=== PATIENT | female | born 1980 | race Caucasian/White ===

== ENCOUNTER 2023-11-23 18:00 | Outpatient (CLI) | payer BC, SELFPAY ==
[2023-11-23 19:09] LABS: Alanine Aminotransferase 54 U/L (12-78); Albumin Level 4.6 g/dl (3.5-5.0); Albumin/Globulin Ratio 1.8 (1.1-1.8); Alkaline Phosphatase 73 U/L (38-126); Aspartate Amino Transferase 57 U/L (14-36); Bilirubin,Total 0.6 mg/dl (0.2-1.3); Blood Urea Nitrogen 17 mg/dl (7-17); Calcium 9.3 mg/dl (8.4-10.2); Carbon Dioxide 23 mmol/L (22.0-30.0); Chloride 109 mmol/L (98-107); Estimated Glomerular Filt Rate 92 ml/min (>60); GFR (African American) 111 ML/MIN (>60); Globulin 2.6 g/dL (1.3-3.2); Glucose 95 mg/dl (74-100); Sodium 139 mmol/L (136-145); Total Protein,Serum 7.2 g/dl (6.3-8.2)
[2023-11-23 19:43] LABS: Thyroid Stimulating Hormone 1.39 uIU/mL (0.465-4.68)
== END 2023-11-23 23:59 | disposition home or self-care (01) ==
LOC: LAB.DROPOF 11-24 08:03
PROVIDERS: PCP Family Medicine; Visit Provider Family Medicine
DX: J32.9 Chronic sinusitis, unspecified (principal); R05.9 Cough, unspecified; Z79.899 Other long term (current) drug therapy
CPT/HCPCS: 80053; 84443

== ENCOUNTER 2025-06-19 11:00 | Outpatient (CLI) | payer BC, SELFPAY ==
--- OUTSIDE RECORDS SUMMARY | 2025-05-13 10:05 | XMS_ITS ---
Author Organization [facility] Address [address] [place] [address] Care Team Providers Care Training Associate Name Role Phone Unknown, PCP Primary Care Provider Jadon Rich Unavailable [phone] Allergies Allergen (clinical drug ingredient) Drug/Non Drug Allergy documented on EMR Reaction Allergy Type Onset Date Status amoxicillin / clavulanate Augmentin gastrointestinal upset Drug Allergy Active sulfamethoxazole / trimethoprim Bactrim Unknown Drug Allergy Active Levaquin Unknown Drug Allergy Active REASON FOR VISIT Not Feeling Well Medications Medication SIG (Take, Route, Frequency, Duration) Notes Start Date End Date Status Flonase Sensimist 27.5 MCG/SPRAY 2 sprays (1 spray in each nostril) Nasally Once a day 02/23/2024 Active Dicyclomine HCl 20 MG TAKE 1 TABLET BY M OUTH EVERY 4 HOURS NEEDED Oral Active Norethindrone 0.35 MG Oral Active Celecoxib 200 MG TAKE 1 CAPSULE BY MO UTH TWICE DAILY NEEDED FOR PAIN Oral Active Cetirizine HCl 10 MG TAKE ONE (1) TABLET BY MOUTH EVERY DAY Oral Active Cefdinir 300 MG 2 capsule Orally rachel ly; Duration: 7 days 05/13/2025 Active Cholestyramine 4 GM DISSOLVE AND TAKE ON E (1) PACKET BY MOUTH EVERY DAY Oral Active Montelukast Sodium 10 MG 1 tablet Orally Once a day Active Ondansetron HCl 4 MG Oral Active Social History Sex Assigned At : Social History Observation Description Sex Assigned At Female Problems No Known Problems Vital Signs Temperature 98.3 degrees Fahrenheit 05/13/20 25 Respiratory Rate 16 /min 05/13/2025 Blood pressure systolic 98 mm Hg 05/13/20 25 Blood pressure diastolic 70 mm Hg 025 Height 66 in 05/13/2025 Weight 170 lbs 05/13/2025 BMI 27.44 kg/m2 05/13/2025 Encounters Encounter Location Date Provider Diagnosis [id number] [id number] 05/13/2025 Jadon Almeida Acute sinusitis, unspecified J01.90 ; Sinus pressure J34.89 ; Acute cough R05.1 and Sore throat J02.9 Assessments Encounter Date Diagnosis (ICD Code) Assessment Notes Treatment Notes Treatment Clinical Notes Section Notes 05/13/2025 Acute sinusitis, unspecified (ICD-10 - J01.90) Complete the entire course of antibiotics as prescribed, even when symptoms have improved, to prevent a relapse of infection and the development of antibiotic resistance. Discussed testing for flu/covid and strep, it was deferred. I would recommend optimizing your OTC medication management, using pseudoephedrine for congestion and tylenol/advil for pain/inflammation. Continue using flonase and saline nasal spray. If symptoms do not improve in 2-3 days, follow up with the clinic. 05/13/2025 Sinus pressure (ICD-10 - J34.89) 05/13/2025 Acute cough (ICD-10 - R05.1) 05/13/2025 Sore throat (ICD-10 - J02.9) Plan Of Treatment Medication Medication Name Sig Start Date Stop Date Notes Flonase Sensimist 27.5 MCG/SPRAY 2 spray s (1 spray in each nostril) Nasally Once a day 02/23/2024 Dicyclomine HCl 20 MG TAKE 1 TABLET BY M OUTH EVERY 4 HOURS NEEDED Oral Norethindrone 0.35 MG Oral Celecoxib 200 MG TAKE 1 CAPSULE BY MO UTH TWICE DAILY NEEDED FOR PAIN Oral Cetirizine HCl 10 MG TAKE ONE (1) TABLET BY MOUTH EVERY DAY Oral Cefdinir 300 MG 2 capsule Orally rachel ly; Duration: 7 days 05/13/2025 Cholestyramine 4 GM DISSOLVE AND TAKE ON E (1) PACKET BY MOUTH EVERY DAY Oral Montelukast Sodium 10 MG 1 tablet Orally Once a day Ondansetron HCl 4 MG Oral Treatment Notes Assessment Notes Acute sinusitis, unspecified Complete th e entire course of antibiotics as prescribed, even when symptoms have improved, to prevent a relapse of infection and the development of antibiotic resistance. Discussed testing for flu/covid and strep, it was deferred. I would recommend optimizing your OTC medication management, using pseudoephedrine for congestion and tylenol/advil for pain/inflammation. Continue using flonase and saline nasal spray. If symptoms do not improve in 2-3 days, follow up with the clinic. Next Appt Details Follow Up: 2 - 3 Days,Olivier schafer: Progress Notes * Lotus YAOOB: 1 (45 yo F)Acc No.[id number]:05/13/2025 Progress Notes Patient: Keyana MATA Provider: Phill Almeida APRN :1980 A ge:45 Y S ex:Female Date:05/13/2025 External Visit ID:[id number] Address:[address] [place] [address] [id number] Pcp:PCP Unknown Subjective: * Chief Complaints: * 1 . Not Feeling Well. * HPI: N ose.: 45 year old female presents with c/o congestion . 04/15 started with nasal congestion. Feels like the congestion i s in her chest, it can cause discomfort that radiates to the back. Having sore throat, ear pain/fullness, sinus pressure. No runny nose, headache, fever/chills, body aches. Using flonase and saline nasal spray. Taking tylenol severe sinus/cold, advil cold/sinus, has not helped much. sinusitis management olivier smith for prescribing Antibiotic regimen m edical reason, a moxicillin not prescribed: m edical reason, w as sinusitis caused due to bacterial infection? y es, O nset of Symptoms: 0 04/15/2025. * ROS: C ONSTITUTIONAL: no c hills. n o b bart aches. n o f ever.? E YES: no e ye pain. E ARS: ear pain y es. s ensation of fullness y es. ? N OSE: diffuse facial pain y es. r hinorrhea y es. c ongestion y es. M OUTH AND THROAT: no d ifficulty swallowing. s ore throat y es. ? R ESPIRATORY: no S hortness of breath. c ough y es. ? C ARDIOVASCULAR: no c hest pain. N EUROLOGY: no h eadache. * Medical History: I BS, SOD. * Surgical History: c holecystectomy 2013. * Hospitalization/Major Diagno stic Procedure: s ee above , 2x Childbirth . * Family History: F ather: alive. M other: , diagnosed with Cancer. 2 brother(s) , 1 sister(s) - healthy. 1 son(s) , 1 daughter(s) - healthy. . denies hereditary health issues. * Social History: G eneral*: . B iometric Tobacco Use N o tobacco Use. . : Are you a: never smoker. Alcohol Misuse/Abuse (Audit C): Points:: 0, Interpretation:: Negative. Alcohol (routine assessment/review): joseph, Sukhi Carol A 12/17/2023 05:30:12 PM EDT >. Occupation: [employer], [place], [id number] 02/23/2024 11:44:43 AM EDT >. Travel outside [place]: Sukhi ruiz Carol A 12/17/2023 05:30:07 PM EDT >, [place], [id number] 02/23/2024 11:44:46 AM EDT >no, Abe Starkenya N 05/13/2025 03:08:12 PM EDT >. * Medications: T aking Montelukast Sodium 10 MG Tablet 1 tablet Orally Once a day , Taking Cholestyramine 4 GM Packet DISSOLVE AND TAKE ONE (1) PACKET BY MOUTH EVERY DAY Oral , Taking Ondansetron HCl 4 MG Tablet Oral , Taking Cetirizine HCl 10 MG Tablet TAKE ONE (1) TABLET BY MOUTH EVERY DAY Oral , Taking Dicyclomine HCl 20 MG Tablet TAKE 1 TABLET BY MOUTH EVERY 4 HOURS NEEDED Oral , Taking Flonase Sensimist 27.5 MCG/SPRAY Suspension 2 sprays (1 spray in each nostril) Nasally Once a day , Taking Celecoxib 200 MG Capsule TAKE 1 CAPSULE BY MOUTH TWICE DAILY NEEDED FOR PAIN Oral , Taking Norethindrone 0.35 MG Tablet Oral , Medication List reviewed and reconciled with the patient * Allergies: B actrim: InTolerance, Levaquin, Augmentin: gastrointestinal upset. Objective: * Vitals: T emp:98.3, Pulse:81, RR:16, BP:98/70, Pain (at time of visit):7/10, LNMP: MIRENA, Ht: 66, Wt: 170, BMI:27.44. * Examination: F ocused Exam: GENERAL: a lert and oriented x 4, no acute distress, dress appropriate for the environment & temp, well-groomed, appears well. HEAD: s ymmetrical facial features, normocephalic. EYES: c onjunctiva pink w/o inflammation or pallor, sclera white, PERRLA, nystagmus absent, pupil size normal, no discharge. EARS: b ilateral, external canal w/o redness, swelling, discharge, TM intact, pearly bhatt, landmarks visualized, non-tender. NOSE e xternal nose free of swelling, trauma, and deviation, no discharge, frontal/maxillary tenderness. MOUTH AND THROAT: l ips pink, moist, oral mucosa pink, moist, w/o lesions or discolorations, uvula midline, pharynx pink, moist, w/o infection, no tonsillar enlargement, no exudate. RESPIRATORY: b reath sounds clear throughout, respiration even and unlabored, congested cough. CARDIO: S 1 & S2 single sounds, no murmurs, gallops, rubs, or clicks, RRR. NEURO: g ait steady, judgment intact, alert and responsive, oriented to person, place, and time, alert and oriented. Assessment: * Assessment: 1. A cute sinusitis, unspecified - J01.90 (Primary) 2 . S inus pressure - J34.89 3 . A cute cough - R05.1 4 . S ore throat - J02.9 Plan: * Treatment: 2. O thers Continue Montelukast Sodium Tablet, 10 MG, 1 tablet, Orally, Once a day; C ontinue Cholestyramine Packet, 4 GM, DISSOLVE AND TAKE ONE (1) PACKET BY MOUTH EVERY DAY, Oral; C ontinue Ondansetron HCl Tablet, 4 MG, Oral; C ontinue Cetirizine HCl Tablet, 10 MG, TAKE ONE (1) TABLET BY MOUTH EVERY DAY, Oral; C ontinue Dicyclomine HCl Tablet, 20 MG, TAKE 1 TABLET BY MOUTH EVERY 4 HOURS NEEDED, Oral; C ontinue Flonase Sensimist Suspension, 27.5 MCG/SPRAY, 2 sprays (1 spray in each nostril), Nasally, Once a day; C ontinue Celecoxib Capsule, 200 MG, TAKE 1 CAPSULE BY MOUTH TWICE DAILY NEEDED FOR PAIN, Oral; C ontinue Norethindrone Tablet, 0.35 MG, Oral. * Procedure Codes: C ODER Sending to Technology Strategist for Code Review * Follow Up: 2 - 3 Days,prn * Billing Information: * Visit Code: * Procedure Codes: VASCULAR PHYSICIAN Sending to Technology Strategist for Code Review. Care Plan Details* * Sign off status: Completed true * Provider: Phill Almeida APRN Date: Generated for Kelechi sam/Gem/Tienitting on: 08/20/2024 07:24 AM EMT INTERMEDIATE History and Physical Notes * HPI (History of Present Illness) Category Sub-Category Detail Notes Category Not es Nose. congestion . 04/15 started w ith nasal congestion. Feels like the congestion is in her chest, it can cause discomfort that radiates to the back. Having sore throat, ear pain/fullness, sinus pressure. No runny nose, headache, fever/chills, body aches. Using flonase and saline nasal spray. Taking tylenol severe sinus/cold, advil cold/sinus, has not helped much sinusitis management reason for prescribing Anti biotic regimen: medical reason amoxicillin not prescribed:: medical paul son was sinusitis caused due to bacterial in fection? : yes Onset of Symptoms:: 04/15/2025 Examination Category Sub-Category Detail Notes Category Not es Focused Exam HEAD: symmetrical facial features, normocephalic EYES: conjunctiva pink w/o inflammation or pallor, sclera white, PERRLA, nystagmus absent, pupil size normal, no discharge EARS: bilateral, external canal w/o redness, swelling, discharge, TM intact, pearly bhatt, landmarks visualized, non-tender NOSE external nose free o f swelling, trauma, and deviation, no discharge, frontal/maxillary tenderness MOUTH AND THROAT: lips pink, moist, or al mucosa pink, moist, w/o lesions or discolorations, uvula midline, pharynx pink, moist, w/o infection, no tonsillar enlargement, no exudate RESPIRATORY: breath sounds clear throughout, respiration even and unlabored, congested cough NEURO: gait steady, judgmen t intact, alert and responsive, oriented to person, place, and time, alert and oriented GENERAL: alert and oriented x 4, no acute distress, dress appropriate for the environment & temp, well-groomed, appears well CARDIO: S1 & S2 single sound s, no murmurs, gallops, rubs, or clicks, RRR
--- OUTSIDE RECORDS SUMMARY | 2025-06-07 10:15 | XMS_ITS | Encounter Summary ---
Author Organization [place] [address] Care Team Providers Care Pharmacy Service Associate Name Role Phone Wojciech Harmon MD Primary Care Provider [phone] Reason for Visit * Reason Comments Chest Pain Encounter Details Date Type Department Care Team (Late st Contact Info) Description 06/07/2025 10:15 AM EST Office Visit [facility] [address] [place] [phone] [place] [address] [place] [id number] Chest pain, unspecified type (Primary Dx); Dizziness; Shortness of breath Social History Tobacco Use Types Packs/Day Years Used Date Smoking Tobacco: Never Smokeless Tobacco: Never Alcohol Use Standard Drinks/Week Comments No 0 (1 standard drink = 0.6 oz pur e alcohol) Sexually Active Control Partners Comments Not Currently Implant Comments No Sex and Gender Information Value Date Recorded Sex Assigned at Not on file Legal Sex Female 12:31 AM EDT Gender Identity Not on file Sexual Orientation Not on file documented as of this encounter Last Filed Vital Signs Vital Sign Reading Time Taken Comments Blood Pressure 118/72 06/07/2025 10:19 AM EST Pulse 79 06/07/2025 10:19 AM EST Temperature 36.7 C (98 F) 06/07/2025 10:19 AM EST Respiratory Rate 22 06/07/2025 10:19 AM EST Oxygen Saturation 98% 06/07/2025 10:19 AM EST Inhaled Oxygen Concentration - - Weight 74.8 kg (165 lb) 06/07/2025 10:19 AM EST Height 170.7 cm (5' 7.2 ) 06/07/2025 10:19 AM ES T Body Mass Index 25.69 06/07/2025 10:19 AM EST documented in this encounter Patient Instructions * Attachments The following attachments cannot be sent through Care Everywhere. * Chest pain ??? Discharge instructions (Cook Islander) documented in this encounter Progress Notes * Beverly Nix LPN - 06/07/2025 10:15 AM EST Patient was given Apirin 324 mg oral per order, see MAR. Patient tolerated well with no complaints or complications, will continue to monitor. No adverse reactions observed after monitoring, with no patient complaints or complications. EKG performed with no complications or complaints. Results put on Providers desk. Beverly Nix LPN, 06/07/2025 * Brayan Jimenez MD - 06/07/2025 10:15 AM EST Subjective: Patient ID: Keyana Jarrell is a 45 y.o. female. Chief Complaint Patient presents with Chest Pain HPI: Here with her Patient complaining of sudden onset chest pressure and shortness of breath which started about 6 AMthis morning Patient says the discomfort is persistent He does not radiate to her arms or neck No obvious correlation with activity or improvement with rest Denies history of smoking, asthma, lung disease, cardiac disease She also notes some nasal congestion and right ear pain which started this morning as well She further complains of episodes of dizziness/room spinning which come and go; they seem to happenmostly at night They are not provoked by head movements She does have a history of this, however, and notes that the episodes terminate with taking meclizine, which she has at home No reported falls or head trauma She also reports abdominal pain, nausea, and vomiting, although she says these are not new symptoms; 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 There were no changesexcept as noted. Review of Systems Objective: Vitals: 06/07/25 1019 BP: 118/72 BP Location: Right arm Patient Position: Sitting Pulse: 79 Resp: (!) 22 Temp: 98 ??F (36.7 ??C) TempSrc: Oral SpO2: 98% Weight: 165 lb (74.8 kg) Height: 5' 7.2 (1.707 m) Body mass index is 25.69 kg/m??. Physical Exam Constitutional: General: She is not in acute distress. Appearance: Normal appearance. She is not ill-appearing or toxic-appearing. HENT: Head: Normocephalic and atraumatic. Right Ear: Tympanic membrane, ear canal and external ear normal. Left Ear: Tympanic membrane, ear canal and external ear normal. Nose: Nose normal. Mouth/Throat: Mouth: Mucous membranes are moist. Pharynx: Oropharynx is clear. No oropharyngeal exudate or posterior oropharyngeal erythema. Eyes: General: Right eye: No discharge. Left eye: No discharge. Cardiovascular: Rate and Rhythm: Normal rate and regular rhythm. Heart sounds: No murmur heard. Pulmonary: Effort: Pulmonary effort is normal. No respiratory distress. Breath sounds: No wheezing or rales. Abdominal: General: Abdomen is flat. There is no distension. Palpations: Abdomen is soft. Tenderness: There is no abdominal tenderness. Musculoskeletal: General: No signs of injury. Right lower leg: No edema. Left lower leg: No edema. Skin: General: Skin is warm and dry. Neurological: General: No focal deficit present. Mental Status: She is alert. Psychiatric: Mood and Affect: Mood normal. Results for orders placed or performed in visit on 06/07/25 POCT EKG Impression Sinus rhythm RSR pattern; incomplete right bundle branch block No EKG available for comparison Assessment & Plan Chest pain, unspecified type Dizziness Shortness of breath Diagnosis discussed Patient's exam is reassuring and her EKG does not show any obvious acute changes Nonetheless, the patient is complaining of acute onset chest pain and shortness of breath along with episodes of dizziness She received 324 mg of chewable aspirin. Discussed that I cannot exclude serious etiologies for the patient's symptoms, including cardiac diseases which may be fatal if left untreated I therefore recommended that the patient proceed to the ER for further evaluation Patient is mentating appropriately and understands that some potential causes of their symptoms maybe very serious and delayed diagnosis or failure to treat these etiologies may result in permanent disability and/or Patient declined EMS transfer; she says her will drive her Of note, patient looked downcast when told that she should go to the ER and said so I just have tosuffer through the pain? I explained to her that we are trying to get to the root cause of her pain so that we can treat it effectively, and that we need to exclude potentially serious causes for her symptoms to make sure she gets the right treatment. She voiced understanding. All questions answered. She left our department stable condition. Orders: POCT EKG aspirin chewable tablet 324 mg Return precautions provided. This note was composed with the help of [employer] voice recognition software. Attempts were made to proofread at the time of dictation; however, dry end tester errors may still occur. No follow-ups on file. documented in this encounter Miscellaneous Notes * Patient Instructions - Brayan Jimenez MD - 06/07/2025 10:15 AM EST Please go directly to the ER for further evaluation of your chest pain and shortness of breath. Call 911 immediately if you develop worsening chest pain, loss of consciousness/ fainting, or otherconcerning symptoms. documented in this encounter Plan of Treatment Upcoming Encounters Date Type Department Care Team (Late st Contact Info) Description 06/28/2025 8:30 AM EST Office Visit [facility] [address] [place] [address] Neli Ortega MD [address] [place] [phone] Pending Results Name Type Priority Associated Diagnoses Date /Time POCT EKG Point of Care Testing Routine Chest pain, unspecified type 06/07/2025 10:47 AM EST documented as of this encounter Procedures Procedure Name Priority Date/Time Associated Diagnosis Comments POCT EKG Routine 06/07/2025 10:47 AM EST Chest pain, unspecified type documented in this encounter Visit Diagnoses Diagnosis Chest pain, unspecified type- Primary Dizziness Dizziness and giddiness Shortness of breath documented in this encounter Administered Medications Inactive Administered Medications - up to 1 most recent administrations Medication Order MAR Action Action Date Dose Rate Site aspirin chewable tablet 324 mg 324 mg, Oral, ONCE, 1 dose, On Thu06/07/25 at 1045, Dx: 1. Chest pain, unspecified typeIndications:Chest pain, unspecified type Given 06/07/2025 10:40 AM EST 324 mg documented in this encounter Orders Medications Ordered That Mika ht Not Have Been Administered Count Last Ordered Date First Ordered Date aspirin chewable tablet 324 mg 1 06/07/2025 documented in this encounter Care Teams Pharmacy Service Associate Relationship Specialty Start Date End Date Wojciech Harmon MD PCP - General Family Medicine 04/14/14 documented as of this encounter
[2025-06-19 16:30] LABS: Hematocrit 38.6 % (37.0-47.0); Hemoglobin 12.5 g/dL (12.2-16.2); Immature Granulocytes % 0.4 %; Mean Corpuscular HGB Conc 32.4 g/dL (31.8-35.4); Mean Corpuscular Hemoglobin 30.0 pg (27.0-31.2); Mean Corpuscular Volume 92.6 fl (81-99); Nucleated Red Blood Cells % 0 %; Platelet Count 236 K/mm3 (142-424); Red Blood Count 4.17 M/mm3 (4.20-5.40); Red Cell Distribution Width-SD 45.8 fL; White Blood Count 5.5 K/mm3 (4.8-10.8)
[2025-06-19 17:00] LABS: Albumin Level 4.7 g/dl (3.5-5.0); Chloride 105 mmol/L (98-107); Potassium 4.4 mmoL/L (3.5-5.1); Sodium 141 mmol/L (136-145)
[2025-06-19 17:03] LABS: Alanine Aminotransferase 53 U/L (12-78); Albumin/Globulin Ratio 1.6 (1.1-1.8); Alkaline Phosphatase 80 U/L (38-126); Anion Gap 15.4 mEq/L (5-15); Aspartate Amino Transferase 36 U/L (14-36); Bilirubin,Total 0.5 mg/dl (0.2-1.3); Blood Urea Nitrogen 7 mg/dl (7-17); Calcium 9.5 mg/dl (8.4-10.2); Carbon Dioxide 25 mmol/L (22.0-30.0); Cholesterol 193 mg/dl (140-200); Creatinine,Serum 0.70 mg/dl (0.52-1.04); Estimated Glomerular Filt Rate 91 ml/min (>60); GFR (African American) 110 ML/MIN (>60); Globulin 2.9 g/dL (1.3-3.2); Glucose 86 mg/dl (74-100); HDL Cholesterol 56 mg/dl (40-60); Total Protein,Serum 7.6 g/dl (6.3-8.2); Triglycerides 120 mg/dl (30-150)
[2025-06-19 17:30] LABS: T4 (Thyroxine) 9.7 ug/dl (5.53-11.0)
[2025-06-19 17:42] LABS: Hepatitis C Ab Qual. W/ RFX NEGATIVE (Negative)
[2025-06-19 17:43] LABS: Thyroid Stimulating Hormone 2.44 uIU/mL (0.465-4.68)
[2025-06-20 06:16] LABS: Hepatitis B Surface Antigen Negative (Negative)
--- OUTSIDE RECORDS SUMMARY | 2025-06-20 08:24 | XMS_ITS | Encounter Summary ---
Author Organization [place] [address] Care Team Providers Care Forming Roll Operator Name Role Phone Wojciech Harmon MD Primary Care Provider [phone] Encounter Details Date Type Department Care Team (Late st Contact Info) Description 02/18/2018 Orders Only [facility] [address] [facility] [address] [place], [place] [id number] Nathaniel Escobedo MD [address] [place] [address] Social History Tobacco Use Types Packs/Day Years Used Date Smoking Tobacco: Never Smokeless Tobacco: Never Alcohol Use Standard Drinks/Week Comments No 0 (1 standard drink = 0.6 oz pur e alcohol) Comments No Sex and Gender Information Value Date Recorded Sex Assigned at Not on file Legal Sex Female 12:31 AM EDT Gender Identity Not on file Sexual Orientation Not on file documented as of this encounter Plan of Treatment Upcoming Encounters Date Type Department Care Team (Late st Contact Info) Description 06/28/2025 8:30 AM EST Office Visit [facility] [address] [place] [address] Neli Ortega MD [address] [place] [address] documented as of this encounter Procedures Procedure Name Priority Date/Time Associated Diagnosis Comments GMED COLONOSCOPY Routine 02/18/2018 10:0 0 AM EDT documented in this encounter Results * GMED COLONOSCOPY (02/18/2018 10:00 AM EDT) 02/18/2018 10:0 0 AM EDT Impressions [facility] - 02/22/2018 1:53 PM EDT Internal hemorrhoids. Plan: Colonoscopy in 5 years This section is an excerpt of the full report. us Nathaniel Escobedo MD GI PROCEDURE ORDERABLES Oli mary Result - Final [facility] [address] [id number] documented in this encounter Visit Diagnoses Not on filedocumented in this encounter Additional Health Concerns Infection Onset Date Last Indicated Resolved Time INFLUENZA 07/09/2022 07/09/2022 07/24/2022 10:1 2 PM EST documented as of this encounter Care Teams Forming Roll Operator Relationship Specialty Start Date End Date Wojciech Harmon MD PCP - General Family Medicine 04/14/14 documented as of this encounter
--- OUTSIDE RECORDS SUMMARY | 2025-06-20 08:24 | XMS_ITS | Encounter Summary ---
Author Organization [facility] [place] [address] Care Team Providers Care Peripheral Vascular Tech Name Role Phone Wojciech Harmon MD Primary Care Provider [phone] Encounter Details Date Type Department Care Team (Late st Contact Info) Description 03/13/2025 Results [facility] [place] [address] Steve Tan MD [address] [place] [address] [address] [place] [address] MM [employer]AM[employer] DIGITAL JOLLY SCREEN BILAT Social History Tobacco Use Types Packs/Day Years Used Date Smoking Tobacco: Never Smokeless Tobacco: Never Alcohol Use Standard Drinks/Week Comments No 0 (1 standard drink = 0.6 oz pur e alcohol) Sexually Active Control Partners Comments Not Currently Comments No Sex and Gender Information Value Date Recorded Sex Assigned at Not on file Legal Sex Female 12:31 AM EDT Gender Identity Not on file Sexual Orientation Not on file documented as of this encounter Plan of Treatment Upcoming Encounters Date Type Department Care Team (Late st Contact Info) Description 06/28/2025 8:30 AM EST Office Visit [facility] [address] [place] [address] Neli Ortega MD [address] [place] [address] documented as of this encounter Visit Diagnoses Not on filedocumented in this encounter Care Teams Peripheral Vascular Tech Relationship Specialty Start Date End Date Wojciech Harmon MD PCP - General Family Medicine 04/14/14 documented as of this encounter
--- OUTSIDE RECORDS SUMMARY | 2025-06-20 08:24 | XMS_ITS | Patient Health Record ---
[facility] Address [address] [place] [address] Care Team Providers Care [facility] Administrator Name Role Phone Unknown, PCP Primary Care Provider Jadon Rich Unavailable [phone] Allergies Allergen (clinical drug ingredient) Drug/Non Drug Allergy documented on EMR Reaction Allergy Type Onset Date Status amoxicillin / clavulanate Augmentin gastrointestinal upset Drug Allergy Active sulfamethoxazole / trimethoprim Bactrim Unknown Drug Allergy Active Levaquin Unknown Drug Allergy Active Reason For Referral No Information Medications Medication SIG (Take, Route, Frequency, Duration) Notes Start Date End Date Status Cefdinir 300 MG 2 capsule Orally rachel ly; Duration: 7 days 05/13/2025 Active Flonase Sensimist 27.5 MCG/SPRAY 2 sprays (1 spray in each nostril) Nasally Once a day 02/23/2024 Active Dicyclomine HCl 20 MG TAKE 1 TABLET BY M OUTH EVERY 4 HOURS NEEDED Oral Active Norethindrone 0.35 MG Oral Active Celecoxib 200 MG TAKE 1 CAPSULE BY MO UTH TWICE DAILY NEEDED FOR PAIN Oral Active Cholestyramine 4 GM DISSOLVE AND TAKE ON E (1) PACKET BY MOUTH EVERY DAY Oral Active Montelukast Sodium 10 MG 1 tablet Orally Once a day Active Cetirizine HCl 10 MG TAKE ONE (1) TABLET BY MOUTH EVERY DAY Oral Active Ondansetron HCl 4 MG Oral Active Immunizations Vaccine Route Administration Date Status Comme nts TDAP: BOOSTRIX Unknown 07/13/2013 Administered Social History Sex Assigned At : Social History Observation Description Sex Assigned At Female Alcohol Misuse/Abuse (Audit C): Question Answer Notes Did you have a drink containing alcohol in the p ast year? No Points: 0 Interpretation: Negative Problems No Known Problems Vital Signs Temperature 98.3 degrees Fahrenheit 05/13/2025 Respiratory Rate 16 /min 05/13/2025 Blood pressure diastolic 70 mm Hg 05/13/2025 Height 66 in 05/13/2025 Blood pressure systolic 98 mm Hg 05/13/2025 Weight 170 lbs 05/13/2025 BMI 27.44 kg/m2 05/13/2025 Encounters Encounter Location Date Provider Diagnosis [address] [address] 05/13/2025 Jadon Almeida Acute sinusitis, unspecified J01.90 [...] throat (ICD-10 - J02.9) Plan Of Treatment No Information Insurance Providers Payer Name Payer Address Payer Phone Subscriber Number Group Number Insured Name Patient Relationship to Insured Coverage Start Date Coverage End Date [place] [facility] [address] [place] [address] [id number] Keyana Jarrell Self - patient is the insured Medical (General) History Medical History History ICD Code IBS SOD Surgical History Surgery Date(Month/Year) cholecystectomy 2013 Hospitalization History Reason Date(Month/Year) see above 2x Childbirth
--- OUTSIDE RECORDS SUMMARY | 2025-06-20 08:24 | XMS_ITS | Encounter Summary ---
Author Organization [facility] [place] [address] Care Team Providers Care Marine Engineering Consultant Name Role Phone Wojciech Harmon MD Primary Care Provider [phone] Encounter Details Date Type Department Care Team (Late Contact Info) Description 07/16/2020 Orders Only [facility] [address] [facility] [address] [place] [id number] Nathaniel Escobedo MD [address] [place] [address] Social History Tobacco Use Types Packs/Day Years Used Date Smoking Tobacco: Never Smokeless Tobacco: Never Alcohol Use Standard Drinks/Week Comments No 0 (1 standard drink = 0.6 oz pur e alcohol) Comments No Sex and Gender Information Value Date Recorded Sex Assigned at Not on file Legal Sex Female 12:31 AM EDT Gender Identity Not on file Sexual Orientation Not on file COVID-19 Exposure Response Date Recorded In the last month, have you been in contact with someone who was confirmed or suspected to have Coronavirus / COVID-19? No / Unsure 07/17/2020 11:52 AM EST documented as of this encounter Plan of Treatment Upcoming Encounters Date Type Department Care Team (Late st Contact Info) Description 06/28/2025 8:30 AM EST Office Visit [facility] [address] [place] [address] Neli Ortega MD [address] [place] [address] documented as of this encounter Procedures Procedure Name Priority Date/Time Associated Diagnosis Comments GMED EGD Routine 07/16/2020 10:20 AM EST documented in this encounter Results * GMED EGD (07/16/2020 10:20 AM EST) 07/16/2020 10:2 0 AM EST Impressions [facility] - 07/16/2020 10:34 AM EST Normal esophagus. Normal mucosa in the whole examined duodenum. (Biopsy). Normal mucosa in the whole stomach. (Biopsy). Plan: Follow-up office visit in 1 month This section is an excerpt of the full report. us Nathaniel Escobedo MD GI PROCEDURE ORDERABLES Fin al Result Performing Organization Address City/State/[facility] Co de Phone Number [facility] [address] [place] [id number] documented in this encounter Visit Diagnoses Not on filedocumented in this encounter Additional Health Concerns Infection Onset Date Last Indicated Resolved Time INFLUENZA 07/09/2022 07/09/2022 07/24/2022 10:1 2 PM EST documented as of this encounter Care Teams Marine Engineering Consultant Relationship Specialty Start Date End Date Wojciech Harmon MD PCP - General Family Medicine 04/14/14 documented as of this encounter
--- OUTSIDE RECORDS SUMMARY | 2025-06-20 08:24 | XMS_ITS | Encounter Summary ---
Author Organization [place] [address] Care Team Providers Care Odd Shoe Examiner Name Role Phone Wojciech Harmon MD Primary Care Provider [phone] Encounter Details Date Type Department Care Team (Late st Contact Info) Description 03/03/2025 Results Follow-Up [facility] [address] [facility] [address] [place] [phone] Steve Tan MD [address] [facility] [address] [place] [address] [phone] NURSE PRACTICAL CYTOLOGY REQUEST (PAP ONLY), HPV HIGH RISK WITH REFLEX TO GENOTYPE, LH/FSH, TSH REFLEX TO FT4 Social History Tobacco Use Types Packs/Day Years [...] AM EST Office Visit [facility] [address] [place] [address] Neli Ortega MD [facility] [place] [address] documented as of this encounter Visit Diagnoses Not on filedocumented in this encounter Care Teams Odd Shoe Examiner Relationship Specialty Start Date End Date Wojciech Harmon MD PCP - General Family Medicine 04/14/14 documented as of this encounter
--- OUTSIDE RECORDS SUMMARY | 2025-06-20 08:25 | XMS_ITS | Encounter Summary ---
Author Organization [place] [address] Care Team Providers Care Flight Teacher Name Role Phone Wojciech Harmon MD Primary Care Provider [phone] Encounter Details Date Type Department Care Team (Late Contact Info) Description 07/16/2020 Lab Re[facility] [place] [address] Nathaniel Escobedo MD [address] [place] [address] Epigastric pain Social History Tobacco Use Types Packs/Day Years [...] AM EST Office Visit [facility] [address] [place] [address] Neli Ortega MD [address] [place] [address] documented as of this encounter Procedures Procedure Name Priority Date/Time Associated Diagnosis Comments PATHOLOGY TISSUE REQUEST Routine 07/16/2020 10:34 AM EST Epigastric pain documented in this encounter Results * PATHOLOGY TISSUE REQUEST (07/16/2020 10:34 AM EST) CASE REPORT Surgical Pathology Case: [id number] Authorizing Provider: Nathaniel Escobedo MD Collected: 07/16/2020 1034 Ordering Location: [facility] Received: 07/16/2020 1503 Pathologist: Tangela Forman MD Specimens: A) - Small Intestine, Duodenum B) - Gastric 07/17/2020 10:40 AM EST [email or web address] CLINICAL HISTORY Abdominal pain - epigastric. 07/17/2020 10:40 AM EST [email or web address] FINAL DIAGNOSIS A) Duodenum, distal, biopsy: - Duodenal mucosa within normal limits. B) Stomach, antrum, biopsy: - Antral mucosa with surface chronic inflammation and reactive changes. - No Helicobacter organisms seen on H&E sections. 07/17/2020 10:40 AM EST [email or web address] at 1040 EST MICROSCOPIC DESCRIPTION Microscopic examination is performed and the findings corroborate the diagnosis. 07/17/2020 10:40 AM EST [email or web address] EMBEDDED IMAGES 07/17/2020 10:40 AM EST [facility] GROSS DESCRIPTION Part A) Received in formalin labeled with the patient's name and d istal duodenum biopsy are two fragments of horn tissue ranging from 0.3 to 0.4 cm in greatest dimension. Entirely submitted in one cassette. /ZN Part B) Received in formalin labeled with the patient's name and g astric antrum biopsy are three fragments of horn tissue ranging from 0.3 to 0.5 cm in greatest dimension. Entirely submitted in one cassette. /ZN 07/17/2020 10:40 AM EST [email or web address] Tissue DUODENAL STRUCTURE / Unknown 07/16/2020 10:34 AM EST 07/16/2020 3:03 PM EST Tissue specimen (specimen) STOMACH STRUCTURE / Unknown 07/16/2020 10:34 AM EST 07/16/2020 3:03 PM EST us Nathaniel Escobedo MD PATHOLOGY ORDERABLES Final Result Performing Organization Address City/State/[facility] Co [place] [address] documented in this encounter Visit Diagnoses Diagnosis Epigastric pain Abdominal pain, epigastric documented in this encounter Additional Health Concerns Infection Onset Date Last Indicated Resolved Time INFLUENZA 07/09/2022 07/09/2022 07/24/2022 10:1 2 PM EST documented as of this encounter Care Teams Flight Teacher Relationship Specialty Start Date End Date Wojciech Harmon MD PCP - General Family Medicine 04/14/14 documented as of this encounter
--- OUTSIDE RECORDS SUMMARY | 2025-06-20 08:25 | XMS_ITS | Encounter Summary ---
Author Organization [place] [address] Care Team Providers Care Shoemaking Finisher Name Role Phone Wojciech Harmon MD Primary Care Provider [phone] Reason for Visit * Reason Comments Medication Refill Encounter Details Date Type Department Care Team (Late Contact Info) Description 05/03/2025 Refill [facility] [address] [place] [address] Neli Ortega MD [address] [place], [place] [id number] Medication Refill Social History Tobacco Use Types Packs/Day Years [...] on file documented as of this encounter Ordered Prescriptions Prescription Sig Dispense Quantity Refills Last Filled Start Date End Date dicyclomine (BENTYL) 20 mg Oral TabletIndications:I rritable bowel syndrome, unspecified type TAKE ONE (1) TABLET BY MOUTH EVERY FOUR (4) HOURS NEEDED 180 Tablet 05/04/2025 documented in this encounter Plan of Treatment Upcoming Encounters Date Type Department Care Team (Late Contact Info) Description 06/28/2025 8:30 AM EST Office Visit [facility] [address] [facility] [place] [address] Neli Ortega MD [address] [facility] [place] [address] documented as of this encounter Visit Diagnoses Diagnosis Irritable bowel syndrome, unspecified type documented in this encounter Discontinued Medications Medication Sig Discontinue Reason Start Date End Da te dicyclomine (BENTYL) 20 mg Oral TabletIndications:Irritab le bowel syndrome, unspecified type TAKE ONE (1) TABLET BY MOUTH EVERY FOUR (4) HOURS NEEDED 02/07/2025 05/04/2025 documented as of this encounter Care Teams Shoemaking Finisher Relationship Specialty Start Date End Date Wojciech Harmon MD PCP - General Family Medicine 04/14/14 documented as of this encounter
--- OUTSIDE RECORDS SUMMARY | 2025-06-20 08:25 | XMS_ITS | Clinical Summary ---
Author Organization [facility] Address [address] [place] [address] Phone Care Team Providers Care Reading Aide Name Role Phone Wojciech Harmon MD Primary Care Provider [phone] Allergies Active Allergy Reactions Criticality Noted Date Comments Amoxicillin-Pot Clavulanate Diarrhea 07/03/2024 Clarithromycin Other (See Comments) 11/21/2017 Make me really hoarse Levofloxacin Other (See Comments) 11/21/2017 Makes me really hoarse Medications ZINC ORAL Take by mouth. Activ e calcium carbonate/vitam in D3 (VITAMIN D-3 ORAL) Take by mouth. Activ e MAGNESIUM OXIDE ORAL Take by mouth. Activ e ELDERBERRY FRUIT ORAL Take by mouth. Acti ve fish oil omega 3-dha-epa 300-1,000 mg Oral Capsule, Delayed Release(E.C.) Take 2 g by mouth daily. Active fluticasone propionate (FLONASE) 50 mcg/actuation Nasl [place]if[place], Suspension USE 1 SPRAY(S) INTRANASALLY ONCE DAILY 1 Active montelukast (SINGULAIR) 10 mg Oral TabletIndicatio ns:Recurrent rhinosinusitis, Nasal congestion Take 1 Tablet by mouth daily. 90 Tablet 3 Active NIFEdipine (ADALAT CC) 30 mg Oral Tablet Sustained ReleaseIndicati ons:Abdominal pain, RUQ (right upper quadrant),Sphin cter of Oddi dysfunction Take 1 Tablet by mouth daily. 90 Tablet 3 3 Active cetirizine (ALLERGY RELIEF, CETIRIZINE,) 10 mg Oral TabletIndicatio ns:Recurrent rhinosinusitis, Nasal congestion Take 1 Tablet by mouth daily. 90 Tablet 3 Active fUROsemide (LASIX) 20 mg Oral Tablet Take 20 mg by mouth daily as needed. for edema 4 Active ipratropium (ATROVENT) 42 mcg (0.06 %) Nasl Clif[place], Non-AerosolIndi cations:Viral URI,Acute non-recurrent sinusitis, unspecified location 2 Sprays by Nasal route 4 times daily as needed for Rhinitis. 2 sprays each nostril 15 mL 5 Active ondansetron (ZOFRAN) 4 mg Oral TabletIndicatio ns:Nausea and vomiting, unspecified vomiting type TAKE ONE (1) TABLET BY MOUTH ONCE DAILY NEEDED FOR NAUSEA 90 Tablet 5 Active NIFEdipine (PROCARDIA XL) 30 mg Oral Tablet Extended Rel 24 hr TAKE ONE (1) TABLET BY MOUTH EVERY DAY 180 Tablet 5 Active norethindrone (MICRONOR) 0.35 mg Oral Tablet Take 1 Tablet by mouth daily. 28 Tablet 12 5 Active celecoxib (CELEBREX) 200 mg Oral CapsuleIndicati ons:Pelvic pain Take 1 Capsule by mouth 2 times daily as needed for Pain. 60 Capsule 11 5 Active cholestyramine (QUESTRAN) 4 gram Oral Powder in PacketIndicatio ns:Bile salt-induced diarrhea DISSOLVE AND TAKE ONE (1) PACKET BY MOUTH EVERY DAY 30 Packet 2 5 Active dicyclomine (BENTYL) 20 mg Oral TabletIndicatio ns:Irritable bowel syndrome, unspecified type TAKE ONE (1) TABLET BY MOUTH EVERY FOUR (4) HOURS NEEDED 180 Tablet 5 Active Hospital, Clinic, or Other Facility Administered Medication Ordered Dose Route Frequency Start Date End Date Status aspirin chewable tablet 324 mgIndications:Chest pain, unspecified type 324 mg Oral ONCE 06/07/2025 06/07/2025 Ended Active Problems Problem Noted Date Diagnosed Date 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 Chronic diarrhea 07/03/2024 H/O irritable bowel syndrome 07/03/2024 Vaginal prolapse 07/03/2024 Rh negative status during 07/08/2013 Overview (07/08/2013): S/P repeat Rhogam on 07/06/13 Gestational thrombocytopenia 07/04/2013 Overview (07/04/2013): Platelet count: 12/13/12 = 179k 05/03/13 = 137k 06/30/13 = 120k 07/04/13 = 119k Anemia 07/01/2013 Overview (07/01/2013): Normal MCV Consider ferritin folate and vitamin B12 levels since MCV normal On po iron with poor obstetric history 07/01/2013 Overview (07/01/2013): PTB at 34 weeks due to PTL and PPROM Unspecified high-risk 06/24/2013 Encounters Date Type Department Care Team Description 06/07/2025 10:15 AM EST [place] [facility] [place] [address] [phone] Brayan Jimenez MD Chest pain, unspecified type (Primary Dx); Dizziness; Shortness of breath 05/03/2025 Refill [facility] [address] [facility] ([id number] Neli Ortega MD Medication Refill 04/05/2025 Refill [facility] [address] [id number] Neli Ortega MD Medication Refill 03/23/2025 10:00 AM EDT Office Visit [facility] [address] [place] [phone] Steve Tan MD Cyst of right ovary (Primary Dx) 03/23/[address] [phone] Marielena Mak RN Results 03/23/[address] [place] [address] Yuliana Villalpando RN Results (US results) 03/22/2025 4:30 PM EDT Clinical Support [facility] [address] [facility] [address] [place] [address] Yael Hanley RDMS Pelvic pain (Primary Dx) 03/22/2025 3:14 PM EDT - 03/22/2025 11:59 PM EDT Hospital Encounter [facility] [address] [place] [address] Well woman exam with routine gynecological exam Discharge Disposition: Home or Self Care from Last 3 Months Immunizations Immunization Administration Dates Next Due Influenza, Split (Incl. Purified Surface Antigen ) 05/11/2019 Rho (D) Immune Globulin 07/14/2013,05/11/2013 Tdap 07/13/2013 Surgical History Surgery Date Site/Laterality Comments OTHER SURGICAL HISTORY Essure CHOLECYSTECTOMY, LAPAROSCOPIC 05/05/2014 Abdomen/N/A LAPAROSCOPIC CHOLECYSTECTOMY ; Surgeon: Tabatha Cottrell MD; Location: [facility]; Service: General UPPER GASTROINTESTINAL ENDOSCOPY COLONOSCOPY Medical History Medical History Date Comments Rh incompatibility IBS (irritable colon syndrome) Pseudocholinesterase deficiency father has, pt never tested Complication of anesthesia Fathe r-Pseudo cholinesterase deficiency Family History Medical History Relation Name Comments No Known Problems Brother x2 Anesth Problems Father pseudocholin asterase deficiency Colon Cancer Father High Cholesterol Father Dementia Maternal Grandfather Heart Disease Maternal Grandmother Heart Failure Maternal Grandmother Heart Surgery Maternal Grandmother Colon Cancer Mother No Known Problems Other Sudden Paternal Grandfather suicide Unknown Paternal Grandmother No Known Problems Sister x1 ADHD Neg Hx Alcohol Abuse Neg Hx Allergic Rhinitis Neg Hx Allergies Neg Hx Allergy (Severe) Neg Hx Alzheimer's Disease Neg Hx Amblyopia Neg Hx Anemia Neg Hx Angioedema Neg Hx Anxiety Disorder Neg Hx Arrhythmia Neg Hx Ataxia Neg Hx Atopy Neg Hx BRCA 1/2 Neg Hx Bipolar Disorder Neg Hx Bleeding Prob Neg Hx Blindness Neg Hx Brain Cancer Neg Hx Breast Cancer Neg Hx Broken Bones Neg Hx COPD Neg Hx Cancer Neg Hx Cataracts Neg Hx Celiac Disease Neg Hx Cervical Cancer Neg Hx Chdhd Hrt Surg Neg Hx Chdhd Resp Dis Neg Hx Chorea Neg Hx Chronic Infections Neg Hx Cirrhosis Neg Hx Clotting Disorder Neg Hx Collagen Disease Neg Hx Colon Polyps Neg Hx Coronary Art Dis Neg Hx Logan Syndrome Neg Hx Crohn's Disease Neg Hx Cystic Fibrosis Neg Hx MARLENI Usage Neg Hx Daytime Sleepiness Neg Hx Dislocations Neg Hx Down Syndrome Neg Hx Drug Abuse Neg Hx Eclampsia Neg Hx Eczema Neg Hx Elevated Lipids Neg Hx Emphysema Neg Hx Endometrial Cancer Neg Hx Esophageal Cancer Neg Hx Fainting Neg Hx Problems Neg Hx Glaucoma Neg Hx Hearing Loss Neg Hx Heart Attack Neg Hx Heart Defect Neg Hx Hemochromatosis Neg Hx Hypertension Neg Hx Hypotension Neg Hx Immunodeficiency Neg Hx Infertility Neg Hx Inflam Bowel Dis Neg Hx Irritable Bowel Syndrome Neg Hx Kidney Cancer Neg Hx Li-Fraumeni Syndrome Neg Hx Liver Cancer Neg Hx Liver Disease Neg Hx Loud Snoring Neg Hx Lung Cancer Neg Hx Lupus Neg Hx Macular Degen Neg Hx Malig Hyperten Neg Hx Malig Hypertherm Neg Hx Marfan Syndrome Neg Hx Memory Loss Neg Hx Migraines Neg Hx Mult Sclerosis Neg Hx Narcolepsy Neg Hx Neurofibromatosis Neg Hx Neuropathy Neg Hx OCD Neg Hx Obesity Neg Hx Osteoarthritis Neg Hx Osteoporosis Neg Hx Other Neg Hx Ovarian Cancer Neg Hx PKU Neg Hx Pacemaker Neg Hx Paranoid Behavior Neg Hx Parkinsonism Neg Hx Physical Abuse Neg Hx Premature Neg Hx Labor Neg Hx Prostate Cancer Neg Hx Pseudochol. Deficiency Neg Hx Psoriasis Neg Hx Rashes/Skin Problems Neg Hx Rectal Cancer Neg Hx Restless Legs Neg Hx Retinal Detachment Neg Hx Rheum Arthritis Neg Hx Rheumatologic Disease Neg Hx SIDS Neg Hx Schizophrenia Neg Hx Scoliosis Neg Hx Seizures Neg Hx Severe Sprains Neg Hx Sexual Abuse Neg Hx Sickle Cell Anemia Neg Hx Sickle Cell Trait Neg Hx Sleep Apnea Neg Hx Spont Abortions Neg Hx Stillborn Neg Hx Stomach Cancer Neg Hx Strabismus Neg Hx Thyroid Cancer Neg Hx Thyroid Disease Neg Hx Tuberculosis Neg Hx Ulcerative Colitis Neg Hx Urolithiasis Neg Hx Urticaria Neg Hx Uterine Cancer Neg Hx Vaginal Cancer Neg Hx Sheng's Disease Neg Hx Relation Name Status Comments Brother x2 Alive Father Alive Maternal Grandfather Maternal Grandmother Mother Other Paternal Grandfather Paternal Grandmother Sister x1 Alive Social History Tobacco Use Types Packs/Day Years Used Date Smoking Tobacco: Never Smokeless Tobacco: Never Tobacco Cessation:Counseling Given: Not Answered Alcohol Use Standard Drinks/Week Comments No 0 (1 standard drink = 0.6 oz pur e alcohol) Sexually Active Control Partners Comments Not Currently Implant Comments No Sex and Gender Information Value Date Recorded Sex Assigned at Not on file Legal Sex Female 12:31 AM EDT Gender Identity Not on file Sexual Orientation Not on file Obstetrics History Para Term AB IAB SAB Ectopic Multiple Livin g Live Births 2 2 0 2 0 0 0 0 0 2 2 Date Outcome GA Total Labor Labor/2nd/3rd Weight Sex Type Anes PTL Jaylyn A1 A5 Name Clin 009 35w 0d M Vag-S pont Epidur al Y Livin g kentrell Delivery Location:[facility] 013 36w 3d 6 lb 0.7 oz (2.741 kg) F Vag-S pont Epidur al N Livin g 9 9 BLUE REZEKIEL STIE BABY A Antoni Tan MD Delivery Location:[facility] Last Filed Vital Signs Vital Sign Reading [...] Mass Index 25.69 06/07/2025 10:19 AM EST Plan of Treatment Upcoming Encounters Date Type Department Care Team (Late st Contact Info) Description 06/28/2025 8:30 AM EST Office Visit [facility] [address] [place] [address] Neli Ortega MD [address] [place] [address] Health Maintenance Due Date Last Done Comments Cologuard 1981 FIT 1981 Sigmoidoscopy 1981 Virtual Colonography 1981 Annual Wellness Exam 02/02/1984 Hepatitis B Vaccine (1 of 3 - 19+ 3-dose series) 02/02/2000 DTaP/TDaP/Td (2 - Td or Tdap) 07/13/2023 07/13/2013 COVID-19 Vaccine ( season) 2025 Influenza Vaccine (#1) 2025 05/11/2019, 2016 Breast Cancer Screening 03/11/2027 03/11/2025 Colon Cancer Screening 12/30/2027 Colonoscopy 12/30/2027 12/31/2022, 02/18/2018 Pap Smear 03/01/2028 03/01/2025, 12/26, 05/19/2014, Additional history exists Cervical Cancer Screening 03/01/2030 HPV/Pap Cotest 03/01/2030 03/01/2025 Meningococcal B Vaccine Aged Out No l onger eligible based on patient's age to complete this topic Pneumococcal Vaccine 0-49 Aged Out No longer eligible based on patient's age to complete this topic Procedures Procedure Name Priority Date/Time Associated Diagnosis Comments POCT EKG Routine 06/07/2025 10:47 AM EST Chest pain, unspecified type US NON-OB TRANSVAGINAL Routine 03/22/2025 3:52 PM EDT Pelvic pain TSH REFLEX TO FT4 Routine 03/22/2025 3:1 4 PM EDT Well woman exam with routine gynecological exam LH/FSH Routine 03/22/2025 3:14 PM EDT Well woman exam with routine gynecological exam MM MAMMO DIGITAL JOLLY SCREEN BILAT Routine 03/11/2025 2:35 PM EDT Encounter for screening mammogram for malignant neoplasm of breast [facility] CYTOLOGY REQUEST (PAP ONLY) Routine 03/01/2025 3:39 PM EDT Cervical cancer screening Screening for HPV (human papillomavirus) COLONOSCOPY Routine 12/31/2022 11:15 AM EDT Family history of colon cancer from Last 3 Months or Most Recently Relevant to Health Maintenance Results * US NON-OB TRANSVAGINAL (03/22/2025 3:52 PM EDT) Anatomical Region Laterality Modality Other Narrative 03/22/2025 5:04 PM EDT Small right ovarian cyst. Ultrasound normal. Essure coils appear in place. Unsure if right ovarian cyst is source of pain. If so, it is likely to get better on it's own. Steve Tan MD [facility] [place] Final Result * LH/FSH (03/22/2025 3:14 PM EDT) LH 2.02 mIU/mL 03/22/2025 7:16 PM EDT PREFERRED [employer] Comment: Suggested Reference Ranges (mIU/mL) Females Follicular Phase 2.4 - 12.6 Ovulation Phase 14.0 - 95.6 Luteal Phase 1.0 - 11.4 Postmenopause 7.7 - 58.5 Males 1.7 - 8.6 FSH 3.75 mIU/mL 03/22/2025 7:16 PM EDT [employer] Comment: Suggested Reference Range (mIU/mL) Females Follicular Phase 3.5 - 12.5 Ovulation Phase 4.7 - 21.5 Luteal Phase 1.7 - 7.7 Postmenopause 25.8 - 134.8 Males 1.5 - 12.4 Blood VENOUS BLOOD / Unknown Venipuncture / Unknown 03/22/2025 3:14 PM EDT 03/22/2025 3:14 PM EDT Narrative [facility] [employer] - 03/22/2025 7:16 PM EDT Ingestion of livier doses of biotin (>5 mg/day) taken within 8 hours of drawing blood sample can interfere with this immunoassay test. Steve Tan MD IMMUNOLOGY ORDERABLES Final Res ult [facility] [address] [facility] , [place] [address] * TSH REFLEX TO FT4 (03/22/2025 3:14 PM EDT) TSH Reflex 1.710 0.270 - 4.200 mcIU/mL 03/22/2025 7:34 PM EDT [employer] [facility] Blood VENOUS BLOOD / Unknown Venipuncture / Unknown 03/22/2025 3:14 PM EDT 03/22/2025 3:14 PM EDT Narrative [facility] [employer] - 03/22/2025 7:34 PM EDT Ingestion of livier doses of biotin (>5 mg/day) taken within 8 hours of drawing blood sample can interfere with this immunoassay test. Steve Tan MD CHEMISTRY ORDERABLES Final Resu lt [facility] [employer] [address] [facility] , [place] [address] * MM MAMMO DIGITAL JOLLY SCREEN BILAT (03/11/2025 2:35 PM EDT) Anatomical Region Laterality Modality Breast Bilateral Mammography 03/11/2025 2:35 PM EDT Impressions 03/13/2025 7:52 AM EDT Negative (FQY-Ulkkobea-3) RECOMMENDATION: Routine Screening Mammogram in 1 Year Bilateral . . COMMENTS: DISCLAIMER *The patient was notified by MyChart or mail of the results for this examination. *The patient's information was entered into a reminder system with a target due date for the next breast imaging, in accordance with the [employer] and the Society of Breast Imaging recommendations. *Breast Imaging has a false negative rate of 15%. *Any patient with a palpable abnormality, unexplained by breast imaging, should be managed on a clinical basis by the attending physician. Narrative 03/13/2025 7:52 AM EDT EXAM: MM MAMMO DIGITAL JOLLY SCREEN BILAT EXAM DATE: 03/11/2025 2:35 PM INDICATION: Z12.31-Encounter for screening mammogram for malignant neoplasm of [id number] COMPARISON STUDIES: None. This is a baseline mammogram. TISSUE DENSITY: The breasts are almost entirely fatty. FINDINGS: No mammographic evidence of malignancy. Procedure Note Jayla Eason MD - 03/13/2025 EXAM: MM MAMMO DIGITAL JOLLY SCREEN BILAT EXAM DATE: 03/11/2025 2:35 PM INDICATION: Z12.31-Encounter for screening mammogram for malignantneoplasm of [id number]-[id number]-CM COMPARISON STUDIES: None. This is a baseline mammogram. TISSUE DENSITY: The breasts are almost entirely fatty. FINDINGS: No mammographic evidence of malignancy. IMPRESSION: Negative (ZMD-Tehsticc-7) RECOMMENDATION: Routine Screening Mammogram in 1 Year Bilateral . . COMMENTS: DISCLAIMER *The patient was notified by MyChart or mail of the results for this examination. *The patient's information was entered into a reminder system with atarget due date for the next breast imaging, in accordance with the [employer] and the Society of Breast Imaging recommendations. *Breast Imaging has a false negative rate of 15%. *Any patient with a palpable abnormality, unexplained by breast imaging,should be managed on a clinical basis by the attending physician. Steve Tan MD IM MAMMOGRAPHY ORDERABLES Poly l Result * [facility] CYTOLOGY REQUEST (PAP ONLY) (03/01/2025 3:39 PM EDT) CASE REPORT Gynecologic Cytology Report Case: [id number] Authorizing Provider: Steve Tan MD Collected: 03/01/2025 1539 Ordering Location: [facility] Edg Received: 03/01/2025 1539 First Screen: Winsome Barrera CT Specimen: LIQUID-BASED PAP - CERVICAL/ENDOCERV ICAL, Cervix, Endocervical 03/03/2025 10:12 AM EDT [facility] PAP FINAL DIAGNOSIS Negative for intraepithelial lesion or malignancy 03/03/2025 10:12 AM EDT [facility] at 1012 EDT MICROSCOPIC DESCRIPTION Microscopic examination is performed and the findings corroborate the diagnosis. 03/03/2025 10:12 AM EDT [facility] PAP SMEAR ADEQUACY Satisfactory for evaluation 03/03/2025 10:12 AM EDT [facility] ENDOCERVICAL T-ZONE Transformation zone present 03/03/2025 10:12 AM EDT [facility] EMBEDDED IMAGES 10:12 AM EDT [facility] PAP DISCLAIMER The Pap Smear is a screening test that aids in the detection of cervical cancer and cancer precursors. Both false positive and false negative results can occur. The test should be used at regular intervals, and positive results should be confirmed before definitive therapy. Processed using the [employer] Automated cytology screening device (Kite). 03/03/2025 10:12 AM EDT [facility] [employer] ENDOCERVICAL STRUCTURE / Unknown 03/01/2025 3:39 PM EDT 03/01/2025 3:39 PM EDT us Steve Tan MD CYTOLOGY ORDERABLES Final Resul t [facility] [address] [id number] * COLONOSCOPY (12/31/2022 11:15 AM EDT) Anatomical Region Laterality Modality Endoscopy Narrative 12/31/2022 11:14 AM EDT Table formatting from the original result was not included. Findings All observed locations appeared normal. Recommendation Repeat colonoscopy in 5 years Family history of colon cancer Patient has family history of colon CA in her mother and father. Because of this, would recommend repeat colonoscopy in 5 years. Indication Family history of colon cancer Staff Staff Role Hoa Estes, RN Sedation Nurse Nathaniel Escobedo MD Performing Provider Medications midazolam (VERSED) injection 7 mg fentaNYL (SUBLIMAZE) injection 100 mcg (Totals for administrations occurring from 1057 to 1114 on 12/31/22) Preprocedure A history and physical has been performed, and patient medication allergies have been reviewed. The patient's tolerance of previous anesthesia has been reviewed. The risks and benefits of the procedure and the sedation options and risks were discussed with the patient. All questions were answered and informed consent obtained. ASA 2 Details of the Procedure The patient underwent moderate sedation, which was administered by the endoscopist. The patient's blood pressure, heart rate, level of consciousness, oxygen, respirations, ECG and ETCO2 were monitored throughout the procedure. A digital rectal exam was performed. The scope was introduced through the anus and advanced to the cecum. Retroflexion was performed in the rectum. Bowel prep was adequate. The patient experienced no blood loss. The procedure was not difficult. The patient tolerated the procedure well. There were no apparent adverse events. Patient provided education and educated on specific discharge instructions. Patient educated on medications given during the procedure and new medications for discharge. Patient verbalizes understanding of discharge education. Patient stable and awaiting transport for discharge. Events Procedure Events Event Event Time ENDO SCOPE IN TIME 12/31/2022 11:01 AM ENDO CECUM REACHED 12/31/2022 11:08 AM ENDO SCOPE OUT TIME 12/31/2022 11:11 AM Specimens No specimens collected Nathaniel Escobedo MD ENDOSCOPY PROCEDURE ORDERAB LES Final Result from Last 3 Months or Most Recently Relevant to Health Maintenance Insurance PPO AN[employer] PPO Advance Directives For more information, please contact: [phone] * Full Code (Latest Code Status on File) Date Activated Date Inactivated Comments 07/10/2013 6:46 PM 07/15/2013 1:15 AM Care Teams Reading Aide Relationship Specialty Start Date End Date Wojciech Harmon MD PCP - General Family Medicine 04/14/14
== END 2025-06-19 23:59 ==
LOC: LAB.DROPOF 06-20 08:21
PROVIDERS: PCP Family Medicine; Visit Provider Family Medicine
DX: R20.0 Anesthesia of skin (principal); R53.83 Other fatigue; Z11.59 Encounter for screening for other viral diseases
CPT/HCPCS: 80053; 80061; 84436; 84443; 85025; 86803; 87340; 87389